=== PATIENT | male | born 1985 | race Caucasian/White ===

== ENCOUNTER 2022-07-27 22:01 | Emergency (ER) | payer SELFPAY ==
[~2022-07-27] VITALS: Ht 178 cm; Wt 137.0 kg
[~2022-07-27 22:01] MED LIST: CARI350T27 PO; DICY20TA10 PO; FLUO20CA25 PO; HYDR-700 PO; IBP800T PO; LISI1TAB10 PO; LISI20TA2 PO; OMEP40CA36 PO; OMG1KC PO; OXAP600T2 PO; RANI75TA30 PO
--- NOTE | 2022-07-27 22:46 | ED General ---
General Chief Complaint: Chest Wall Stated Complaint: RIGHT RIB PAIN Nursing Triage Note: c/o right chest wall pain, soa after pushing on door. Source of Information: Patient History of Present Illness Date Seen by Provider: Jul 27, 2022 Time Seen by Provider: 22:15 Initial Comments PT ARRIVES VIA POV FROM HOME DAUGHTER BEING SEEN ALSO TONIGHT AT 2044 TONIGHT, PT'S DAUGHTER LOCKED HERSELF IN THE BATHROOM TONIGHT, WITH ALL OF HER PILLS, AND WAS THINKING ABOUT OVERDOSING. PT WAS TRYING TO BREAK DOWN THE DOOR, BY PUSHING ON IT USING HIS RIGHT SIDE STATES HE FELT A POP IN RIGHT LATERAL CHEST AREA, WHEN HE WAS DOING THIS, AND HAS HAD PAIN THERE SINCE POLICE WERE CALLED BY HIS , THEN PT AND DAUGHTER CAME BY POV PT HAS NOT TAKEN ANYTHING FOR PAIN STATES IT HURTS TO BREATHE, BUT DOES NOT FEEL SHORT OF BREATH NO BACK PAIN NO ARM OR SHOULDER PAIN NO ABDOMINAL PAIN OR GI SYMPTOMS PCP: [facility] Allergies and Home Medications Allergies Coded Allergies: No Known Drug Allergies (Unverified , 04/06/11) Patient Home Medication List Home Medication List Reviewed: Yes Meloxicam (Meloxicam) 15 Mg Tablet, 15 MG PO DAILY Prescribed by: RACHELE CHOW on 07/27/22 2319 Discontinued Medications Dicyclomine Hcl (Dicyclomine Hcl) 20 Mg Tablet, 20 MG PO DAILY, (Reported) Discontinued Reason: No Longer Taking Entered as Reported by: ABDI NOVAK on 04/06/11 0003 Last Action: Discontinued Fluoxetine Hcl (Fluoxetine Hcl) 20 Mg Capsule, 1 EACH PO DAILY, (Reported) Discontinued Reason: No Longer Taking Entered as Reported by: WILLY SHERIDAN on 09/27/13 1205 Last Action: Discontinued Hctz/Lisinopril (Lisinopril-Hctz 20-25MG Tab) 1 Tab Tablet, 1 EACH PO DAILY, (Reported) Discontinued Reason: No Longer Taking Entered as Reported by: ALISON CRAWFORD on 07/28/12 1055 Last Action: Discontinued Ibuprofen (Motrin) 800 Mg Tab, 800 MG PO Q8HR PRN for p Discontinued Reason: No Longer Taking Prescribed by: FRANCHESCA MCALLISTER on 09/27/13 1404 Last Action: Discontinued [place] 3 Polyunsat Fatty Acids (Fish Oil) 1,000 Mg Cap, 1,000 MG PO BID, (Reported) Discontinued Reason: No Longer Taking Entered as Reported by: NIMESH COLEMAN on 01/14/12 1226 Last Action: Discontinued Ranitidine Hcl (Ranitidine Hcl) 75 Mg Tablet, 75 MG PO DAILY, (Reported) Discontinued Reason: No Longer Taking Entered as Reported by: WILLY SHERIDAN on 09/27/13 1205 Last Action: Discontinued Review of Systems Review of Systems Constitutional: no symptoms reported Respiratory: see HPI Cardiovascular: see HPI Gastrointestinal: no symptoms reported Genitourinary: no symptoms reported Musculoskeletal: see HPI Skin: no symptoms reported Psychiatric/Neurological: No Symptoms Reported Hematologic/Lymphatic: No Symptoms Reported Immunological/Allergic: no symptoms reported Past Hhnmuvs-Otkqgk-Mpgmop Hx Patient Social History Tobacco Use?: No Substance use?: No Alcohol Use?: No Pt feels they are or have been: No Immunizations Up To Date First/Initial COVID19 Vaccinat: na Past Medical History Surgery/Hospitalization HX: eye sx, t/a, colonoscopies, htn Surgeries: Yes (COLONOSCOPIES; CORRECTIVE EYE SURGERY X 3 ) Adenoidectomy, Eye Surgery, Tonsillectomy Respiratory: No Cardiac: Yes Hypertension Neurological: No Genitourinary: No Gastrointestinal: Yes Irritable Bowel Musculoskeletal: No Endocrine: No HEENT: No Cancer: No Psychosocial: No Integumentary: No Blood Disorders: No Physical Exam Vital Signs Vital Signs - First Documented 07/27/22 22:06 Temp 36.0 Pulse 90 Resp 16 B/P (MAP) 154/105 (121) Pulse Ox 94 O2 Delivery Room Air Capillary Refill : Less Than 3 Seconds Height, Weight, BMI Height: '" Weight: 250lbs. oz. 113.469547lk; 43.00 BMI Method:Stated General Appearance: No Apparent Distress, WD/WN, Obese Neck: Normal Inspection Respiratory: Normal Breath Sounds, No Accessory Muscle Use, No Respiratory Distress, Other (MILD TENDERNESS TO MID ANTERIOR AND LATERAL CHEST. NO EXTERNAL EVIDENCE OF TRAUMA. NO SUB Q AIR OR CREPITANCE. 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 Norm as Tested Skin: Normal Color, Warm/Dry; No Ecchymosis Progress/Results/Core Measures Suspected Sepsis SIRS Temperature: Pulse: 90 Respiratory Rate: 16 Blood Pressure 154 /105 Mean: 121 Results/Orders My Orders Orders - RACHELE CHOW DO Ribs/Unilateral With Chest (07/27/22 22:30) Acetaminophen Tablet (Tylenol Tablet) (07/27/22 23:30) Ibuprofen Tablet (Motrin Tablet) (07/27/22 23:30) Vital Signs/I&O 07/27/22 07/27/22 22:06 23:29 Temp 36.0 36.0 Pulse 90 90 Resp 16 16 B/P (MAP) 154/105 (121) 122/100 Pulse Ox 94 94 O2 Delivery Room Air Room Air Capillary Refill : Less Than 3 Seconds Blood Pressure Mean: 121 Diagnostic Imaging Comments XRAYS OF CHEST AND RIGHT RIBS--PER RADIOLOGIST REPORT AT 2317 FINDINGS: Lung volumes are normal. No consolidation is seen. There is no pleural effusion or pneumothorax. The cardiac silhouette is normal in size. No displaced right rib fractures are seen. IMPRESSION: 1. No displaced right rib fracture seen. No acute pulmonary abnormality. Reviewed: Reviewed by Me Departure Impression Primary Impression: Contusion of right chest wall Disposition: HOME, SELF-CARE Condition: Stable Departure-Patient Inst. Decision time for Depature: 23:17 Referrals: [facility] (PCP/Family) Primary Care Physician Patient Instructions: Bruised Rib (DC) Add. Discharge Instructions: ICE TO AREA AT 20 MINUTE INTERVALS TYLENOL NEEDED FOR PAIN FOLLOW UP WITH YOUR DR IN 1 WEEK IF NO BETTER All discharge instructions reviewed with patient and/or family. Voiced understanding. Scripts Meloxicam (Meloxicam) 15 Mg Tablet 15 MG PO DAILY, #10 TAB Prov: RACHELE CHOW DO 07/27/22 Images Torso/Trunk 1 - Mild, Tenderness RACHELE CHOW DO Jul 27, 2022 22:46
--- NOTE | 2022-07-27 23:01 | Diagnostic Imaging Report ---
HISTORY: Right rib pain TECHNIQUE: Frontal view of the chest. Frontal and oblique views of the right ribs COMPARISON: None FINDINGS: Lung volumes are normal. No consolidation is seen. There is no pleural effusion or pneumothorax. The cardiac silhouette is normal in size. No displaced right rib fractures are seen. IMPRESSION: 1. No displaced right rib fracture seen. No acute pulmonary abnormality. Dictated by: Dictated on workstation # [id number]
[2022-07-27] MEDS ORDERED: MELO15TA39 PO (23:19)
[2022-07-27 23:29] VITALS: BP 122/100
[2022-07-27] MEDS ORDERED: IBUPROFEN 800 MG (MOTRIN) TAB PO ONE (23:30)
[2022-07-27] MEDS ORDERED: ACETAMINOPHEN 500 MG TAB (TYLENOL) PO ONE (23:30)
== END 2022-07-27 23:31 | disposition home or self-care (01) ==
LOC: EDUNIT# 22:01 → ER 22:03
DX: S20.211A Contusion of right front wall of thorax, initial encounter (principal); E66.9 Obesity, unspecified; Z68.41 Body mass index [BMI] 40.0-44.9, adult; Z28.310 Unvaccinated for COVID-19; X50.1XXA Overexertion from prolonged static or awkward postures, initial encounter; Y92.091 Bathroom in other non-institutional residence as the place of occurrence of the external cause
CPT/HCPCS: 71101